=== PATIENT | female | born 1940 | race Hispanic/Latino ===

== ENCOUNTER 2019-02-03 18:55 | Inpatient (IN) | payer MEDICARE ==
--- NOTE | 2019-02-03 20:02 | RAD ---
XR Femur Lt 2 View STANDARD: 02/03/2019 7:05 PM CLINICAL INDICATION: Emergency exam, fall with pain COMPARISON: None. FINDINGS: Fracture:Displaced subcapital left femoral fracture. There is mild override of major fracture fragmen ts. Femoral head remains seated within acetabulum. Arthropathy:Scattered osteoarthritis Incidental findings:None of significance. IMPRESSION: Subcapital, mildly displaced left femoral fracture. Recommend orthopedic consultation.
--- NOTE | 2019-02-03 20:37 | RAD ---
Exam: Chest one view HISTORY:Preoperative assessment Comparison: None FINDINGS: Lungs: There is nodular prominence at the left suprahilar region. This could relate to superimpositio n of hilar/vascular structures. Cardiac silhouette:Enlarged Pulmonary vessels: Mild central prominence Pleural Spaces: Clear Pneumothorax: None Osseous abnormalities: None of acuity. IMPRESSION: Enlarged cardiac silhouette and prominent central pulmonary vasculature. Correlate for ev idence of CHF.
[2019-02-03 20:38] LABS: #Eosinphils 0.7 thou/uL (0.0-0.7); #Monocytes 0.6 thou/uL (0.11-0.59); #Neutrophils 9.3 thou/uL (1.40-6.50); %Basophils 0.4 % (0.0-1.0); %Eosinophils 5.9 % (0.0-10.0); %Lymphocytes 15.6 % (21.0-51.0); %Monocytes 4.7 % (0.0-10.0); %Neutrophils 73.4 % (42.0-75.0); Hemoglobin 10.7 g/dL (12.0-16.0); Mean Corpuscular Hemoglobin 26.7 pg (27.0-31.0); Mean Platelet Volume 8.5 fL (7.4-10.4); Platelet Count 174 thou/uL (130-400); RBC Distribution Width 13.6 % (11.5-14.5); Red Blood Cell (RBC) Count 4.02 mill/uL (4.20-5.40); White Blood Cell (WBC) Count 12.6 thou/uL (4.8-10.8)
--- NOTE | 2019-02-03 20:39 | RAD ---
LEFT HIP TWO VIEWS: 02/03/19 INDICATION: Fall, trauma with left hip pain. COMPARISON: None. FINDINGS: There is a displaced subcapital left femoral neck fracture with displacement of the femoral head comp onent posteriorly and inferiorly. No additional fracture is evident. IMPRESSION: Displaced left subcapital femoral neck fracture. POS: BH
[2019-02-03 20:45] LABS: INR-International Normal Ratio 1.1; PTT 38.4 SEC (22.9-36.1); Prothrombin Time 13.7 SEC (12.0-14.7)
[2019-02-03] MEDS ORDERED: Ketorolac Tromethamine 30 MG/ML VIAL ONE (20:46)
[2019-02-03] MEDS ORDERED: Acetaminophen 500 MG TAB ONE (20:46)
[2019-02-03] MEDS ORDERED: Milk Of Magnesia 30 ML UDCUP PO PRN (20:50)
[2019-02-03] MEDS ORDERED: Promethazine HCl 25 MG/ML VIAL IM PRN (20:50)
[2019-02-03] MEDS ORDERED: traMADol HCl 50 MG TAB PO PRN (20:50)
[2019-02-03] MEDS ORDERED: Morphine 2 MG/ML SYRINGE IVP PRN (20:50)
[2019-02-03] MEDS ORDERED: Ondansetron PF 4 MG/2 ML Vial IV PRN (20:50)
[2019-02-03] MEDS ORDERED: Communication Order-Pharmacy FS PRN (21:00)
[2019-02-03 21:07] LABS: ALT (SGPT) 17 U/L (8-55); AST (SGOT) 26 U/L (5-34); Alkaline Phosphatase 93 U/L (40-150); Anion Gap 12 mmol/L (10-20); BUN (Urea Nitrogen) 28 mg/dL (9.8-20.1); Bilirubin, Total 0.4 mg/dL (0.2-1.2); Calc. Creatinine Clearance 0 mL/min (70-130); Calcium 9.5 mg/dL (7.8-10.44); Carbon Dioxide 25 mmol/L (23-31); Chloride 101 mmol/L (98-107); Estimated GFR-MDRD 80; Globulin 3.3 g/dL (2.4-3.5); Glucose 146 mg/dL (83-110); Potassium 4.3 mmol/L (3.5-5.1); Protein, Total 7.3 g/dL (6.0-8.3); Sodium 134 mmol/L (136-145)
[2019-02-03 22:43] VITALS: BMI 21.4
[2019-02-03] MEDS: Sodium Chloride 0.9% 1,000 ML IV SCH (23:06)
[2019-02-03] MEDS: traMADol HCl 50 MG TAB PO SCH (23:25)
[2019-02-03] MEDS: Ibuprofen 600 MG TAB PO SCH (23:26)
[2019-02-03] MEDS: Acetaminophen 325 MG TAB PO SCH (23:26)
--- NOTE | 2019-02-03 23:50 | PDOC.GSPN ---
Surgery Progress Note: Subj - Subjective Narrative: Patient seen and examined. Agree with assessment and plan as discussed with the trauma PA. Surgery Progress Note: Obj - Vital signs Vital signs: Vital Signs - Most Recent Temp Pulse Resp BP Pulse Ox 98.5 F 70 18 154/68 H 96 02/03/19 23:15 02/03/19 23:15 02/03/19 23:15 02/03/19 23:15 02/03/19 23:15 Surgery Progress Note: Results - Labs Result Diagrams: 02/03/19 20:30 02/03/19 20:30 Lab results: Laboratory Results - last 24 hr 02/03/19 02/03/19 02/03/19 20:30 20:30 20:30 WBC 12.6 H RBC 4.02 L Hgb 10.7 L Hct 34.6 L MCV 86.0 MCH 26.7 L MCHC 31.0 L RDW 13.6 Plt Count 174 MPV 8.5 Neutrophils % 73.4 Lymphocytes % 15.6 L Monocytes % 4.7 Eosinophils % 5.9 Basophils % 0.4 Neutrophils # 9.3 H Lymphocytes # 2.0 Monocytes # 0.6 H Eosinophils # 0.7 Basophils # 0.0 PT 13.7 INR 1.1 APTT 38.4 H Sodium 134 L Potassium 4.3 Chloride 101 Carbon Dioxide 25 Anion Gap 12 BUN 28 H Creatinine 0.71 Estimated GFR (MDRD) 80 Glucose 146 H Calcium 9.5 Total Bilirubin 0.4 AST 26 ALT 17 Alkaline Phosphatase 93 Serum Total Protein 7.3 Albumin 4.0 Globulin 3.3 Albumin/Globulin Ratio 1.2
[2019-02-04 05:58] LABS: #Basophils 0.1 thou/uL (0.0-0.2); #Eosinphils 0.7 thou/uL (0.0-0.7); #Lymphocytes 1.8 thou/uL (1.20-3.40); #Monocytes 0.5 thou/uL (0.11-0.59); #Neutrophils 5.3 thou/uL (1.40-6.50); %Basophils 0.9 % (0.0-1.0); %Eosinophils 8.7 % (0.0-10.0); %Lymphocytes 21.2 % (21.0-51.0); %Monocytes 5.4 % (0.0-10.0); %Neutrophils 63.8 % (42.0-75.0); Hemoglobin 11.1 g/dL (12.0-16.0); Mean Corpuscular HGB CONC 31.1 g/dL (32.0-36.0); Mean Corpuscular Hemoglobin 26.8 pg (27.0-31.0); Mean Platelet Volume 8.7 fL (7.4-10.4); Platelet Count 168 thou/uL (130-400); RBC Distribution Width 13.6 % (11.5-14.5); Red Blood Cell (RBC) Count 4.14 mill/uL (4.20-5.40); White Blood Cell (WBC) Count 8.3 thou/uL (4.8-10.8)
[2019-02-04 06:02] LABS: INR-International Normal Ratio 1.1; Prothrombin Time 13.9 SEC (12.0-14.7)
[2019-02-04 06:03] LABS: PTT 37.6 SEC (22.9-36.1)
[2019-02-04] MEDS: traMADol HCl 50 MG TAB PO SCH ×3 (06:07→19:14)
[2019-02-04] MEDS: Ibuprofen 600 MG TAB PO SCH ×3 (06:07→19:13)
[2019-02-04] MEDS: Acetaminophen 325 MG TAB PO SCH (06:08)
[2019-02-04 06:22] LABS: ALT (SGPT) 15 U/L (8-55); AST (SGOT) 23 U/L (5-34); Albumin 3.7 g/dL (3.4-4.8); Alkaline Phosphatase 79 U/L (40-150); Anion Gap 10 mmol/L (10-20); BUN (Urea Nitrogen) 22 mg/dL (9.8-20.1); Bilirubin, Total 0.7 mg/dL (0.2-1.2); Calc. Creatinine Clearance 60 mL/min (70-130); Calcium 9.1 mg/dL (7.8-10.44); Carbon Dioxide 27 mmol/L (23-31); Chloride 100 mmol/L (98-107); Estimated GFR-MDRD Greater than 90; Globulin 3.4 g/dL (2.4-3.5); Glucose 151 mg/dL (83-110); Magnesium 1.6 mg/dL (1.6-2.6); Phosphorus 3.1 mg/dL (2.3-4.7); Potassium 3.9 mmol/L (3.5-5.1); Protein, Total 7.1 g/dL (6.0-8.3); Sodium 133 mmol/L (136-145)
[2019-02-04] MEDS ORDERED: Magnesium 2 GM/50 ML 2 GM in Premix Bag 1 BAG IVPB SCH (07:00)
[2019-02-04] MEDS ORDERED: Midazolam HCl 2 mg/2 ml Vial ONE (08:16)
[2019-02-04] MEDS ORDERED: Fentanyl 100 MCG/2 ML VIAL ONE (08:17)
[2019-02-04] MEDS ORDERED: MORPHINE 5 MG/10 ML PF VIAL ONE (08:23)
[2019-02-04] MEDS: Calcium Carbonate 500 MG TAB PO SCH (08:53)
[2019-02-04] MEDS: Lisinopril 2.5 MG TAB PO SCH (08:54)
[2019-02-04] MEDS: Cyclobenzaprine 10 MG TAB PO SCH ×3 (08:54→19:58)
[2019-02-04] MEDS: Ferrous Sulfate 325 MG TAB PO SCH (08:54)
[2019-02-04] MEDS: Senokot S 8.6-50 MG TAB PO SCH ×2 (08:54→19:40)
[2019-02-04] MEDS: Polyethylene Glycol 3350 17 GM Packet PO SCH (08:54)
[2019-02-04] MEDS: Gabapentin 100 MG CAP PO SCH (08:54)
[2019-02-04] MEDS ORDERED: CHOLECALCIFEROL PO SCH (09:00)
[2019-02-04] MEDS ORDERED: FERROUS PO SCH (09:00)
[2019-02-04] MEDS ORDERED: Calcium Carbonate 500 MG TAB PO SCH (09:00)
[2019-02-04] MEDS ORDERED: Ondansetron HCl/PF 4 MG/2 ML Vial IVP PRN (10:01)
[2019-02-04] MEDS ORDERED: Naloxone HCl 0.4 mg/ml Vial IVP PRN ×2 (10:03)
[2019-02-04] MEDS ORDERED: diphenhydrAMINE 50 MG/ML VIAL IVP PRN (10:03)
[2019-02-04] MEDS ORDERED: Promethazine HCl 25 MG/ML VIAL IM PRN (10:03)
[2019-02-04] MEDS ORDERED: Promethazine HCl 25 MG SUPP PR PRN (10:03)
[2019-02-04] MEDS ORDERED: Ketorolac Tromethamine 30 MG/ML VIAL IVP PRN (10:03)
[2019-02-04] MEDS ORDERED: Ondansetron PF 4 MG/2 ML Vial IVP PRN (10:03)
[2019-02-04] MEDS ORDERED: Naloxone HCl 0.4 mg/ml Vial IV PRN (10:03)
[2019-02-04] MEDS ORDERED: Acetaminophen 1,000 MG in Premix Bag 1 BAG IVPB PRN (10:06)
[2019-02-04] MEDS ORDERED: Communication Order-Pharmacy FS SCH (10:15)
[2019-02-04] MEDS ORDERED: Acetaminophen 500 MG TAB PO PRN (10:21)
[2019-02-04] MEDS ORDERED: Fentanyl 100 MCG/2 ML VIAL SLOW IVP PRN (10:22)
[2019-02-04] MEDS ORDERED: traMADol HCl 50 MG TAB PO PRN (10:22)
[2019-02-04] MEDS ORDERED: HYDROcodone/Acetaminophen 10/325 mg Tablet PO PRN ×2 (10:22)
[2019-02-04] MEDS: Sodium Chloride 0.9% 1,000 ML IV SCH (10:35)
--- NOTE | 2019-02-04 10:55 | RAD ---
LEFT HIP 2 VIEWS: Date: 02/04/19 HISTORY: Postop evaluation. FINDINGS/IMPRESSION: Left hip prosthesis is in place and appears adequately positioned. Postop changes are noted. POS: JONE
[2019-02-04] MEDS ORDERED: PROPOFOL 200 MG/20 ML VIAL ONE (14:59)
[2019-02-04] MEDS ORDERED: PHENYLEPHRINE-NS 100 MCG/ML 10 ML SYRINGE ONE (14:59)
--- NOTE | 2019-02-04 15:30 | OP ---
DATE OF PROCEDURE: 02/04/2019 PREOPERATIVE DIAGNOSIS: Displaced subcapital femoral neck fracture of the left hip. POSTOPERATIVE DIAGNOSIS: Displaced subcapital femoral neck fracture of the left hip. PROCEDURE PERFORMED: Proximal femoral replacement utilizing bipolar prosthesis. ANESTHESIA: Spinal with IV sedation. TECHNIQUE: The patient was given preoperative IV antibiotics, taken to the operating room, placed in the lateral decubitus position and satisfactory spinal was performed. The patient was then placed in the right lateral decubitus position, and all bony prominences were well padded. The left hip and lower extremity were sterilely prepped and draped in the usual fashion. A longitudinal incision was made over the lateral aspect of the hip approximately 5 inches in length, and an anterior lateral approach was made to the hip joint. A portion of the femoral neck was removed with oscillating saw. The femoral head was removed. There was no arthritis in the femoral head. It was measured as a size 42. Small fragments of bone were removed from the hip joint, and the hip was thoroughly irrigated with antibiotic solution using the high-speed ornamental iron worker. The proximal femur was then prepared initially with a box osteotome, then a hand Charnley reamer and then it was sequentially rasped up to size 9. The 10-mm broach was left in place. Calcar reamer was used, and then different trials were inserted. The neutral femoral head was used with the 22 mm head diameter, which was then used and a 42 mm bipolar hip was placed through range of motion, is very stable and had good range of motion. The trial was removed. The hip again was copiously irrigated with antibiotic solution with the high-speed ornamental iron worker, and then the prosthesis was inserted. It was a DonJoy series 440 hip stem with a collar with size 9 mm, then neutral 22 mm femoral head was impacted over the Herrera taper, and then the 42 mm bipolar was snapped into place. It was reduced again was found to be very stable. I was irrigated, and then closure was provided using #2 Vicryl for the anterior fibers of the adductor muscle, #2 Vicryl for the iliotibial band, 0 Vicryl for the fat and subcutaneous tissue, and skin was closed with skin dillon. Sterile dressing was applied, and the patient was transferred to recovery room in stable condition. ESTIMATED BLOOD LOSS: 200 mL. COMPLICATIONS: None. Job ID: [id number]
[2019-02-04] MEDS: CEFAZOLIN 2 GM in Premix Bag 1 BAG IVPB SCH (18:03)
[2019-02-05] MEDS: Ibuprofen 600 MG TAB PO SCH ×5 (00:35→23:53)
[2019-02-05] MEDS: traMADol HCl 50 MG TAB PO SCH ×5 (00:36→23:53)
[2019-02-05] MEDS: Sodium Chloride 0.9% 1,000 ML IV SCH (00:37)
[2019-02-05] MEDS: CEFAZOLIN 2 GM in Premix Bag 1 BAG IVPB SCH (01:41)
[2019-02-05 05:28] LABS: #Eosinphils 0.2 thou/uL (0.0-0.7); #Lymphocytes 1.5 thou/uL (1.20-3.40); #Monocytes 0.5 thou/uL (0.11-0.59); #Neutrophils 4.6 thou/uL (1.40-6.50); %Basophils 0.4 % (0.0-1.0); %Eosinophils 3.6 % (0.0-10.0); %Lymphocytes 21.5 % (21.0-51.0); %Monocytes 6.6 % (0.0-10.0); %Neutrophils 67.9 % (42.0-75.0); Hemoglobin 7.8 g/dL (12.0-16.0); Mean Corpuscular HGB CONC 32.6 g/dL (32.0-36.0); Mean Corpuscular Hemoglobin 28.4 pg (27.0-31.0); Mean Corpuscular Volume 87.1 fL (78.0-98.0); Mean Platelet Volume 8.7 fL (7.4-10.4); Platelet Count 130 thou/uL (130-400); RBC Distribution Width 13.7 % (11.5-14.5); Red Blood Cell (RBC) Count 2.74 mill/uL (4.20-5.40); White Blood Cell (WBC) Count 6.8 thou/uL (4.8-10.8)
[2019-02-05 05:37] LABS: Anion Gap 9 mmol/L (10-20); BUN (Urea Nitrogen) 22 mg/dL (9.8-20.1); Calc. Creatinine Clearance 56 mL/min (70-130); Carbon Dioxide 27 mmol/L (23-31); Chloride 99 mmol/L (98-107); Estimated GFR-MDRD 87; Glucose 172 mg/dL (83-110); Magnesium 1.7 mg/dL (1.6-2.6); Phosphorus 2.9 mg/dL (2.3-4.7); Potassium 3.8 mmol/L (3.5-5.1); Sodium 131 mmol/L (136-145)
[2019-02-05 07:58] LABS: Bilirubin Negative (Negative); Blood, Urine Negative (Negative); Clarity Clear (Clear); Glucose, Urine (Dipstick) Greater than 1000 mg/dL (Negative); Leukocyte Negative Leu/uL (Negative); Nitrite Negative (Negative); Protein, Urine (Dipstick) 20 mg/dL (Neg-Trace); RBC/HPF 0-3 HPF (0-3); Squamous Epithelial 0-3 HPF (0-3); Urobilinogen Normal mg/dL (Less than 2)
[2019-02-05 08:10] LABS: Bacteria/HPF 1+ HPF (None Seen)
[2019-02-05] MEDS: metFORMIN 500 MG TAB PO SCH (08:42)
[2019-02-05] MEDS: Polyethylene Glycol 3350 17 GM Packet PO SCH (08:44)
[2019-02-05] MEDS: Ferrous Sulfate 325 MG TAB PO SCH (08:45)
[2019-02-05] MEDS: Aspirin Chewable 81 MG TAB PO SCH (08:45)
[2019-02-05] MEDS: Senokot S 8.6-50 MG TAB PO SCH ×2 (08:46→20:10)
[2019-02-05] MEDS: Calcium Carbonate 500 MG TAB PO SCH (08:46)
[2019-02-05] MEDS: Gabapentin 100 MG CAP PO SCH (08:47)
[2019-02-05] MEDS: Cyclobenzaprine 10 MG TAB PO SCH ×3 (08:47→20:10)
[2019-02-05] MEDS: Lisinopril 2.5 MG TAB PO SCH (08:48)
--- NOTE | 2019-02-05 12:10 | PRG ---
DATE OF SERVICE: 02/05/2019 The patient is one day status post bipolar prosthesis of the left hip. The patient states she is fairly comfortable, has very little pain. She was able to get up and out of bed with physical therapy today. The patient has been afebrile. Vital signs have been stable. Laboratory today shows hemoglobin 7.8, hematocrit 23.8. Left lower extremity is neurovascularly intact. The patient will continue with physical therapy to improve her strength and gait. We will recheck her H and H tomorrow. Job ID: [id number]
[2019-02-06 05:15] LABS: #Eosinphils 1.7 thou/uL (0.0-0.7); #Lymphocytes 1.7 thou/uL (1.20-3.40); #Monocytes 0.4 thou/uL (0.11-0.59); #Neutrophils 3.9 thou/uL (1.40-6.50); %Basophils 0.6 % (0.0-1.0); %Lymphocytes 22.1 % (21.0-51.0); %Monocytes 5.5 % (0.0-10.0); %Neutrophils 49.8 % (42.0-75.0); Hemoglobin 7.9 g/dL (12.0-16.0); Mean Corpuscular HGB CONC 31.3 g/dL (32.0-36.0); Mean Corpuscular Hemoglobin 27.3 pg (27.0-31.0); Mean Corpuscular Volume 87.3 fL (78.0-98.0); Mean Platelet Volume 8.7 fL (7.4-10.4); Platelet Count 144 thou/uL (130-400); RBC Distribution Width 13.6 % (11.5-14.5); Red Blood Cell (RBC) Count 2.89 mill/uL (4.20-5.40); White Blood Cell (WBC) Count 7.9 thou/uL (4.8-10.8)
[2019-02-06 05:25] LABS: Anion Gap 8 mmol/L (10-20); BUN (Urea Nitrogen) 15 mg/dL (9.8-20.1); Calc. Creatinine Clearance 63 mL/min (70-130); Calcium 8.5 mg/dL (7.8-10.44); Carbon Dioxide 30 mmol/L (23-31); Chloride 102 mmol/L (98-107); Estimated GFR-MDRD Greater than 90; Glucose 154 mg/dL (83-110); Magnesium 1.7 mg/dL (1.6-2.6); Phosphorus 1.9 mg/dL (2.3-4.7); Sodium 136 mmol/L (136-145)
[2019-02-06] MEDS: Ibuprofen 600 MG TAB PO SCH ×3 (05:49→18:24)
[2019-02-06] MEDS: traMADol HCl 50 MG TAB PO SCH ×3 (05:49→18:23)
--- NOTE | 2019-02-06 07:44 | HP ---
HISTORY OF PRESENT ILLNESS: Patient is a 78-year-old female, who presented to the emergency room for the evaluation of left hip pain after ground-level fall. The patient vital sign and mental status intact upon arrival to the ER. She denies any loss of conscious or other symptoms. She did not try to walk due to pain of left hip. She denies nausea or vomiting. She did not hit her head on the ground. Upon arrival at the emergency department, her GCS was 15. Vital signs stable. She was diagnosed with left femur neck fracture on hip x-ray. REVIEW OF SYSTEMS: Noncontributory except per HPI. PAST MEDICAL HISTORY: The patient has diabetes, type 2 with oral medications. PAST SURGICAL HISTORY: She had cholecystectomy and 2 C-sections. SOCIAL HISTORY: The patient denies using drug, alcohol, or smoking history. ALLERGIES: NO KNOWN ALLERGIES. PHYSICAL EXAMINATION: VITAL SIGNS: Blood pressure 150/70, pulse 82, respiratory rate 18, temperature 99, O2 sat is 96% on room temperature. GENERAL: The patient is lying down, No acute respiratory distress. She complains of pain on left hip. HEENT: Nontraumatic. No sign of injury. NECK: Trachea midline. No sign of injury. LUNGS: No sign of bruising. No crepitus. Nontender to touch. Chest rise and fall bilaterally. Lungs are clear bilaterally on auscultation. HEART: Regular rate and rhythm. ABDOMEN: Soft. Nontender. Nondistended. EXTREMITIES: Denied moving left leg due to pain. Right leg and two upper extremities; normal range of motion. Normal strength. NEUROVASCULAR: Intact. DIAGNOSES: 1. Left femur neck fracture. 2. History of diabetes. PLAN: The patient was examined at bedside. Dr. Rivera. Dr. Rivera will surgery on left hip tomorrow. The patient is under aggressive pain control. N.p.o. at midnight. Job ID: [id number] [facility]
--- NOTE | 2019-02-06 08:55 | HP ---
ADDENDUM: To the H and P. CHIEF COMPLAINT: Left hip and leg pain. This is an addendum to the H and P dictated by Amilcar Silverio Trauma FARHAT. I have discussed the patient's case with her and agree with the treatment plan as outlined in her H and P. HISTORY OF PRESENT ILLNESS: Ms. Quezada is a 78-year-old woman who had a ground level fall at home after losing her balance while doing laundry. She fell onto her left side and had immediate onset of pain in her left hip and leg. She denies any loss of consciousness or other injuries during the fall. She is feeling better since being admitted to the hospital and receiving pain medication. PAST MEDICAL HISTORY: Diabetes, hypertension, and anemia. PAST SURGICAL HISTORY: C-sections and cholecystectomy. SOCIAL HISTORY: The patient does not smoke, drink, or use illicit drugs. DRUGS ALLERGIES: She has no known drug allergies. OUTPATIENT MEDICATIONS: Include; 1. Metformin. 2. Lisinopril. 3. Aspirin. 4. Calcium. 5. Multivitamin. 6. Iron. PHYSICAL EXAMINATION: VITAL SIGNS: The patient has been afebrile since her admission with mild hypertension, but otherwise normal vital signs. HEENT: Unremarkable. She is normocephalic, atraumatic. NECK: Supple without lymphadenopathy or thyroid nodules. HEART: Regular in its rate and rhythm without murmur, rub, or gallop. LUNGS: Clear to auscultation bilaterally. ABDOMEN: Soft, nontender, and nondistended. She does not have any tenderness with AP and lateral compression of her chest. No palpable masses or hernias on the abdominal exam. No external bruising, but tenderness in the left hip area. She has palpable pedal pulses distally and normal capillary refill and normal movement and sensation of both feet. No significant edema. PSYCHIATRIC: Alert, oriented, and appropriate. LABORATORY DATA: White count is slightly elevated on admission. Hematocrit 34.6, platelets 174. BUN was mildly elevated at 28, but creatinine normal at 0.71, sodium slightly low at 134, but electrolytes and LFTs otherwise normal. Chest x-ray showed some mild cardiomegaly and prominence of the central pulmonary vasculature. Hip and femur films showed a subcapital femoral neck fracture. ASSESSMENT AND PLAN: Left femoral neck fracture status post ground level fall. The patient has some chronic medical issues, which are all stable, and is appropriate to proceed with surgery today by Orthopedics. She does have some findings on chest x-ray, which are suggestive of some possible heart failure, but no symptoms of this, so we will simply monitor her for this at this time. This can be worked up as an outpatient if necessary. Plan is early mobilization postoperatively. Job ID: [id number]
[2019-02-06] MEDS: Lisinopril 2.5 MG TAB PO SCH (09:45)
[2019-02-06] MEDS: Gabapentin 100 MG CAP PO SCH (09:45)
[2019-02-06] MEDS: Ferrous Sulfate 325 MG TAB PO SCH (09:45)
[2019-02-06] MEDS: Polyethylene Glycol 3350 17 GM Packet PO SCH (09:45)
[2019-02-06] MEDS: Senokot S 8.6-50 MG TAB PO SCH ×2 (09:45→21:30)
[2019-02-06] MEDS: Cyclobenzaprine 10 MG TAB PO SCH ×3 (09:46→21:30)
[2019-02-06] MEDS: Aspirin Chewable 81 MG TAB PO SCH ×2 (09:46→21:30)
[2019-02-06] MEDS: metFORMIN 500 MG TAB PO SCH (09:46)
[2019-02-06] MEDS: Calcium Carbonate 500 MG TAB PO SCH (09:46)
--- NOTE | 2019-02-06 11:44 | PRG ---
DATE OF SERVICE: 02/04/2019 SUBJECTIVE: The patient is _78 years old female who was coming for evaluation of _ L hip pain after a ground level fall. She was diagnosed with L hip fracture . She was underwent total hip replacement today. How is the patient doing today, overnight event. no Ambulation. no Nausea and vomiting. no Pain. limited Fever. no Shortness of breath. no Having bowel movement. no OBJECTIVE: VITAL SIGNS: Current temperature ___98 , current heart rate 88 , current blood pressure ___130/80 , current respiratory rate 18 , current O2 sat ___96 . GENERAL: Well appearing, alert, and awake. No acute respiratory distress. HEENT: Normocephalic and atraumatic. RESPIRATORY: No respiratory distress. LUNGS: Clear to auscultation bilaterally. CARDIOVASCULAR: Regular rate and rhythm. ABDOMEN: Abdomen is soft, nontender, and nondistended. No deformity. Rebound and guarding, negative. EXTREMITIES: Warm and well perfused. NEUROLOGIC: Intact neurological. Oriented x3. ASSESSMENT: Status post fall L hip fracture PLAN: Total L hip replacement today Pain control Continue prophylaxis regimen, spirometer incentive, DVT prophylaxis, gastritis prophylaxis. PLACEMENT PLAN: rehab Job ID: [id number] [facility]
[2019-02-06] MEDS: Acetaminophen 500 MG TAB PO PRN ×2 (12:25→18:23)
[2019-02-06] MEDS ORDERED: PHOS-NAK 1 PKT PACK PO SCH (14:15)
--- NOTE | 2019-02-06 15:37 | PRG ---
DATE OF SERVICE: 02/06/2019 SUBJECTIVE: The patient is a 78-year-old female, who was coming for evaluation of left hip pain after a ground level fall. She was diagnosed with left hip fracture. She underwent left hip replacement with Dr. Boggs on February 04. OVERNIGHT EVENTS: The patient doing well. No overnight events noted. No fever or shortness of breath. She is currently on diabetic diet. She is able to ambulate very well. Pain is well controlled. OBJECTIVE: GENERAL: The patient is alert and oriented to person, place, and time. VITAL SIGNS: Temperature 98, heart rate 92, respiratory rate 18, O2 saturations 95% on room, and blood pressure _130/80 HEENT: Nontraumatic. NECK: Normal range of motion. Trachea midline. RESPIRATORY AND CHEST: Breath sounds clear. No wheezing. No rales. Chest movements are symmetrical. CARDIOVASCULAR: Regular rate and rhythm. ABDOMEN: Nontender. Bowel sounds normal. BACK: Normal range of motion. No CVA tenderness. EXTREMITIES: Upper extremities, noncontributory. Lower extremities, inspection normal, range of motion is normal. NEUROLOGIC: Neurovascularly intact. SKIN: Warm, dry, and normal in color. LABORATORY DATA: White count 7.9, hemoglobin is 7.9. Sodium 136, potassium 4.0 , creatinine 0.59, phosphorus 1.9, and magnesium 1.7. IMAGING STUDIES: No new imaging to be reviewed. ASSESSMENT: 1. Status post ground level fall, left hip fracture. 2. Postoperative left total hip replacement, day #2. PLAN: Continue pain control. Continue DVT and gastritis prophylaxis. Continue to work with PT/OT to gain her muscle strength. Dr boggs want to check patient H & H tomorrow . Anticipating discharge tomorrow if Dr. Boggs is okay. Dr Mcdonald is ok with patient will be discharge home due to her stable vital, pain is well control and her level of mobilization with no difficulty Job ID: [id number] [facility]
[2019-02-07] MEDS: Ibuprofen 600 MG TAB PO SCH ×4 (01:14→18:51)
[2019-02-07] MEDS: traMADol HCl 50 MG TAB PO SCH ×2 (01:14→05:55)
--- NOTE | 2019-02-07 03:00 | PRG ---
DATE OF SERVICE: 02/06/2019 SUBJECTIVE: The patient is 2 days status post bipolar prosthesis of the left hip. The patient was able to ambulate in the [place]asio with physical therapy today with minimal discomfort. OBJECTIVE: VITAL SIGNS: The patient has been afebrile, pulse 74, respiratory rate 16, blood pressure 114/57. LABORATORY DATA: Hemoglobin 7.9, hematocrit 25.2. ASSESSMENT: Left lower extremity remained neurovascularly intact. PLAN: The patient is doing well with physical therapy. She will continue to work with physical therapy to become as independent as possible. Job ID: [id number]
[2019-02-07 06:02] LABS: Hemoglobin 7.4 g/dL (12.0-16.0); Platelet Count 157 thou/uL (130-400)
[2019-02-07] MEDS: Polyethylene Glycol 3350 17 GM Packet PO SCH (08:03)
[2019-02-07] MEDS: metFORMIN 500 MG TAB PO SCH (08:03)
[2019-02-07] MEDS: Aspirin Chewable 81 MG TAB PO SCH (08:03)
[2019-02-07] MEDS: Ferrous Sulfate 325 MG TAB PO SCH (08:03)
[2019-02-07] MEDS: Senokot S 8.6-50 MG TAB PO SCH (08:04)
[2019-02-07] MEDS: Gabapentin 100 MG CAP PO SCH (08:04)
[2019-02-07] MEDS: Lisinopril 2.5 MG TAB PO SCH (08:04)
[2019-02-07] MEDS: Cyclobenzaprine 10 MG TAB PO SCH ×2 (08:04→18:50)
[2019-02-07] MEDS: Calcium Carbonate 500 MG TAB PO SCH (08:04)
[2019-02-07] MEDS ORDERED: traMADol HCl 50 MG TAB PO PRN ×2 (08:45)
[2019-02-07] MEDS: Acetaminophen 500 MG TAB PO SCH ×2 (12:16→18:50)
[2019-02-07] MEDS: Ascorbic Acid 500 mg Chewable Tablet PO SCH ×2 (12:16→18:50)
[2019-02-07 15:25] VITALS: BP 127/66; TEMP 98.1
[2019-02-07] MEDS ORDERED: Ferrous Sulfate 325 MG TAB PO SCH (17:00)
--- NOTE | 2019-02-07 20:53 | PRG ---
DATE OF SERVICE: 02/07/2019 The patient is status post bipolar prosthesis, left hip. She is doing well. She has good control of her pain. She has worked with physical therapy and is able to independently get out of bed and ambulate with a walker. The patient has been afebrile. Blood pressure 131/59, respiratory rate 16, pulse 80. Hemoglobin this morning 7.4, hematocrit 23.9. Arrangements have been made for the patient to be discharged to home with the help of her family. She will follow up with my office in 2 weeks. Job ID: [id number]
--- NOTE | 2019-02-08 01:32 | DIS ---
DATE OF ADMISSION: 02/03/2019 DATE OF DISCHARGE: 02/07/2019 ADMISSION DIAGNOSES: 1. Mechanical fall from standing. 2. Left femoral neck fracture. 3. History of diabetes, hypertension, anemia. DISCHARGE DIAGNOSES: 1. Mechanical fall from standing. 2. Left femoral neck fracture. 3. History of diabetes, hypertension, anemia. CONSULTING PHYSICIAN: Dr. Rivera of Orthopedic Surgery. PROCEDURES: The patient went to the OR on 02/04/2019, had a proximal femoral replacement utilizing bipolar prosthesis on the right. HOSPITAL COURSE: The patient is a 78-year-old female, presented to the emergency department after mechanical fall with no loss of consciousness. After evaluation, it was noted that the patient had a left femoral neck fracture. She was admitted to the Trauma Service and went to the OR with Orthopedic surgery, Dr. Rivera on 02/04, and received a proximal right femoral replacement utilizing bipolar prosthesis. Postoperatively, she worked with Physical and Occupational Therapy. Her pain is well controlled. It was deemed that she was safe to be discharged home with home physical and occupational therapy. She does have her child and who are able to help take care of her. At the time of discharge, the patient was ambulating without difficulties. Pain was well controlled. She was on a diabetic diet and tolerating that well. She was voiding without difficulties. She did receive blood products during this admission and she is on vitamin C and iron. DISCHARGE DISPOSITION: Home. DISCHARGE CONDITION: Satisfactory. PHYSICAL EXAMINATION: VITAL SIGNS: Temperature 98.4, pulse 82, respirations 18, oxygen saturation 97% on room air, blood pressure 113/69. GENERAL: Elderly female, ambulating in hallway with no signs of acute distress. PULMONARY: Equal chest rise and fall. Clear breath sounds bilaterally. No signs of acute respiratory distress. CARDIAC: Regular rate and rhythm. No murmurs, gallops, or rubs. GASTROINTESTINAL: Abdomen is soft, nontender, nondistended. EXTREMITIES: 2+ pulses in all extremities. No significant swelling noted. Gross motor and sensation intact. NEURO: GCS is 15. DISCHARGE INSTRUCTIONS: The patient was discharged home with weightbearing as tolerated in all extremities. She has a diabetic diet. She is to get home physical and occupational therapy. She is to continue to use her incentive spirometer and walker as well. DISCHARGE MEDICATIONS: 1. Tylenol. 2. Vitamin C. 3. Aspirin. 4. Calcium carbonate. 5. Ferrous sulfate. 6. Gabapentin. 7. Ibuprofen. 8. Lisinopril. 9. Vitamin D. 10. Metformin. 11. Protonix. 12. MiraLAX. 13. Tramadol. FOLLOWUP APPOINTMENTS: The patient is to follow up with Dr. Rivera of Orthopedic Surgery and her primary care physician in 2 weeks with a followup CBC as she is anemic. This is merely a summary of the patient's hospitalization. For full details, please see her medical record in its entirety. Job ID: [id number]
== END 2019-02-07 19:54 | disposition home or self-care (01) | DRG 470 ==
LOC: ERS 18:55 → SURG A 20:25
PROVIDERS: ADMIT Surgery; ATTEND Surgery
PROC: 0SRS0JZ Replacement of Left Hip Joint, Femoral Surface with Synthetic Substitute, Open Approach (ICD-10-PCS; principal; 2019-02-03)
DX: S72.012A Unspecified intracapsular fracture of left femur, initial encounter for closed fracture (principal); E11.9 Type 2 diabetes mellitus without complications; I10 Essential (primary) hypertension; D64.9 Anemia, unspecified; W18.39XA Other fall on same level, initial encounter; Y93.E2 Activity, laundry; Y92.008 Other place in unspecified non-institutional (private) residence as the place of occurrence of the external cause; Z90.49 Acquired absence of other specified parts of digestive tract
CPT/HCPCS: 36415; 36416; 71045; 80048; 80053; 81001; 83735; 84100; 85014; 85018; 85025; 85049; 85610; 85730; 93005; 96374; J0690; J1885; J2250; J2270; J2274; J2405; J2550; J2704; J3010; J3475